=== PATIENT | male | born 1945 | race Caucasian/White ===

== ENCOUNTER → 2021-09-05 | Outpatient (CLI) | payer MEDICARE, OTHER ==
[~2021-09-05] MED LIST: CATHETER FLUSH 10 ML SYR IV PRN; HOLD METFORMIN - RECEIVED CONTRAST 20 ML VIAL IV SCH; IOHEXOL 350 MG/ML 100 ML (OMNIPAQUE 350) VIAL IV ONE; NS 100 ML (IVPB) BAG IV ONE
[2021-09-05 12:28] LABS: CREATININE SERUM 0.73 MG/DL (0.60-1.30)
--- NOTE | 2021-09-05 17:01 | Diagnostic Imaging Report ---
PROCEDURE: CT pelvis with contrast. TECHNIQUE: Oral and intravenous contrast were administered with pelvic CT performed. Auto Exposure Controls were utilized during the CT exam to meet ALARA standards for radiation dose reduction. INDICATION: Soft tissue mass of the right hip. COMPARISON: None available. FINDINGS: There is a circumscribed soft tissue nodule in the subcutaneous fat overlying the gluteus pro and this measures 1.8 x 1.2 x 1.2 cm. It is completely surrounded by fat and has circumscribed margins. No soft tissue mass is present elsewhere within the pelvis. No free pelvic fluid. Prostate is enlarged. There is mild trabeculated wall thickening of the urinary bladder likely due to chronic partial bladder outlet obstruction. No pelvic or inguinal lymphadenopathy. IMPRESSION: 1. The palpable abnormality corresponds to a well-circumscribed nodule in the subcutaneous fat overlying the right gluteal musculature. Differential consideration would include a complicated cyst, such as from old hematoma. Soft tissue neoplasm is possible but of low likelihood given long-term stability. Continued follow-up with physical examination. If this enlarges, biopsy may be warranted. 2. 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 Dictated by: Dictated on workstation # [id number]
== END ==
LOC: RAD FS 11:50
DX: M79.89 Other specified soft tissue disorders (principal); N40.0 Benign prostatic hyperplasia without lower urinary tract symptoms
CPT/HCPCS: 36415; 72193; 82565; 84520; Q9967